=== PATIENT | female | born 2000 | race Caucasian/White ===

== ENCOUNTER 2019-11-14 16:47 | Outpatient (CLI) | payer BC ==
--- NOTE | 2019-11-14 17:14 | RAD ---
XR Chest Pa Lat STANDARD HISTORY: Cough, asthma symptoms COMPARISON: None FINDINGS: The heart size is normal. The lungs are well expanded without focal areas of consolidation, pneumothorax or pleural effusions. IMPRESSION: No radiographic evidence of acute cardiopulmonary process.
== END 2019-11-14 16:48 | disposition home or self-care (01) ==
LOC: SCSRAD 16:47
DX: R05 Cough (principal)
CPT/HCPCS: 71046